=== PATIENT | female | born 1965 ===

== ENCOUNTER 2024-11-22 14:03 | Outpatient (AMB) | payer MEDICAID, SELFPAY ==
--- NOTE | 2024-11-22 14:06 | A.OFFVIS_ITS ---
Intake Visit Reasons: mixed incontinence Intake Note: New patient presents today for initial visit for mixed incontinence Urology Medication:none Blood Thinner:Aspirin Antibiotic Allergies:none PVR:0ml Allergies No Known Allergies Allergy (Verified 11/22/24 15:21) Medication List - Last Reconciled 11/22/24 by BARBARA Villegas-ZIGGY ammonium lactate 12% appl topical aspirin 81 mg PO DAILY atorvastatin 40 mg PO DAILY baclofen 10 mg PO BID PRN carbamide peroxide 6.5% (Murine Ear) 5 drps otic (ears) BEDTIME cetirizine 10 mg PO DAILY cholecalciferol (vitamin D3) (Vitamin D3) 10 mcg PO DAILY citalopram 10 mg PO DAILY cyclobenzaprine 10 mg PO TID PRN famotidine 40 mg PO DAILY fluticasone propionate 50 mcg/actuation 1 spray intranasal DAILY gabapentin 600 mg PO TID lidocaine 5% 1 patch topical Q3D methadone 52 mg PO DAILY multivitamin with folic acid 400 mcg (Daily-Richar (with folic acid)) 1 tab PO DAILY pantoprazole 40 mg PO DAILY psyllium husk 0.4 grams PO DAILY selenium sulfide 2.5% topical BEDTIME sennosides (senna) 8.6 mg PO BID PRN sodium chloride 0.65% (Deep Sea Nasal) 1 spray intranasal HPI Comments Details: Cele is a very pleasant 59-year-old female patient of Dr. Valle. She has a past medical history of substance abuse, smoker, neuropathy, mixed incontinence, midline cystocele, low-grade squamous intraepithelial lesion on cervical Pap smear, CVA, uterus fibroid, bipolar disorder, bilateral varicose veins of lower extremities, and abnormal mammogram. She presents to the office today as a new patient for mixed urinary incontinence. In discussion with the patient today she reports symptoms have been present for many years however feels they have become more bothersome over the last few months. She reports utilizing approximately 3 Cinthia pads per day. We discussed at length potential causes of mixed urinary incontinence as well as further treatment options and risks and benefits of these treatment options. In office urinalysis results reviewed with the patient today. PVR 0 mL. We discussed obtaining retrope ritoneal ultrasound for further assessment evaluation. She does have a previous history of 3 vaginal deliveries and 1 via . She denies nocturia, hematuria, dysuria, foul smelling urine, changes to urinary stream, flank pain, fever, and or chills. She otherwise offers no other issues or concerns at this time. Plan For mixed urinary incontinence, I recommended starting with pelvic floor therapy, discussing its benefits and the wait-list. Medication options were outlined, and, for further diagnostics, a potential urodynamic study was considered if required later. A referral for pelvic floor therapy was submitted, and a kidney and bladder ultrasound was planned for additional assessment. We will evaluate progress post-therapy initiation. Patient was informed and verbally consented to the use of an ambient scribe for clinic note documentation during this visit. [facility] Medical History Varicose veins of both lower extremities Urinary urgency Urinary frequency Substance abuse Smoker Other psychoactive substance dependence, in remission Opioid use disorder, mild, in sustained remission Nocturia Neuropathy Mixed incontinence Midline cystocele Malignant neoplasm of breast (female), unspecified site Low grade squamous intraepithelial lesion (LGSIL) on cervical Pap smear Low back pain Lives alone Lack of access to transportation Inflammatory carcinoma of breast History of substance abuse History of cerebrovascular accident with residual deficit Fibroid uterus Fecal incontinence 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 Chronic depression Cerebrovascular accident Cerebral infarction due to embolism of unspecified anterior cerebral artery Bipolar disorder Atrophy of vagina Asymptomatic varicose veins of bilateral lower extremities Abnormal mammogram Surgical History History of right salpingo-oophorectomy History of left mastectomy Review of Systems Const All systems reviewed & are unremarkable except as noted in HPI and below Physical Exam Const General: cooperative, healthy appearing, comfortable, no acute distress, well developed, alert and awake Orientation/consciousness: patient oriented x3 Limitations: no limitations HEENT Head: Yes normal to inspection, Yes normocephalic and Yes atraumatic Ears: hearing grossly normal bilaterally Eyes General: appearance normal, both eyes and all related structures Neck Neck: Yes normal visual inspection and Yes trachea midline Chest Chest palpation & inspection: normal inspection of the chest Resp Effort & Inspection: normal respiratory effort and able to speak in complete sentences Cardio Rate: regular rate GI Inspection: Yes normal to inspection General: Yes no CVA tenderness Back/Spine/Pelvis Back: no CVA tenderness Skin General skin exam: no rashes or lesions noted Neuro General: patient oriented x3 Extrem General: Yes normal to inspection Psych Appearance: grossly normal and well kempt Mental Status: mental status grossly normal Speech and movement: Normal speech and movement present and Clear speech present Affect: normal affect Attitude: cooperative Thought process: Normal thought process present Thought content: Normal thought content present Insight: Fair insight present (Psych) Judgement: Fair judgement present (Psych) Results AMB Urinalysis, Automated UA Leukoctes 0 Sarita/uL Last Edit by Елена Monzon on 11/22/24 14:41 UA Nitrite Negative Last Edit by Елена Monzon on 11/22/24 14:41 UA Urobilinogen 3.5 mg/dL Last Edit by Елена Monzon on 11/22/24 14:41 UA Protein 0 mg/dL Last Edit by Елена Monzon on 11/22/24 14:41 UA pH 6.0 Last Edit by Елена Monzon on 11/22/24 14:41 UA Blood 0 Dontae/uL Last Edit by Елена Monzon on 11/22/24 14:41 UA Specific Zamora 1.020 Last Edit by Елена Monzon on 11/22/24 14:41 UA Ketone Negative Last Edit by Елена Monzon on 11/22/24 14:41 UA Bilirubin 0 mg/dL Last Edit by Елена Monzon on 11/22/24 14:41 UA Glucose 0 mg/dL Last Edit by Елена Monzon on 11/22/24 14:41 Results Reviewed Results Reviewed: Laboratory Last Values Urine pH (Auto) 6.0 11/22/24 14:14 Specific Zamora (Auto) 1.020 11/22/24 14:14 Urine Protein (Auto) 0 mg/dL 11/22/24 14:14 Glucose (UA)(Auto) 0 mg/dL 11/22/24 14:14 Urine Ketones (Auto) Negative 11/22/24 14:14 Urine Blood (Auto) 0 Dontae/uL 11/22/24 14:14 Urine Nitrite (Auto) Negative 11/22/24 14:14 Urine Bilirubin (Auto) 0 mg/dL 11/22/24 14:14 Urine Urobilinogen (Auto) 3.5 mg/dL 11/22/24 14:14 Leukocyte Esterase (Auto) 0 Sarita/uL 11/22/24 14:14 Assessment & Plan Assessment & Plan (1) Mixed stress and urge urinary incontinence: Code(s): N39.46 - Mixed incontinence Category: Medical Plan In office urinalysis results reviewed with the patient today; as noted above. PVR 0 mL. Will obtain retroperitoneal ultrasound for further assessment evaluation. Referral submitted for pelvic floor therapy for further assessment evaluation. We discussed at length potential causes and treatment options of mixed urinary incontinence and risks and benefits of these interventions. All questions were answered. We discussed bladder triggers/irritants. Follow-up in 3 months with imaging and PVR; or sooner with any issues, concerns, and or questions. Orders: Orders US retroperitoneal comp Today N39.46 - Mixed incontinence AMB Urinalysis Automated Today Z13.9 - Encounter for screening, unspecified AMB Post Void Residual by ultrasound Today Z13.9 - Encounter for screening, unspecified PT Evaluation and Treatment Today N39.46 - Mixed incontinence Patient Instructions: The patient had an opportunity to ask questions regarding the treatment plan. All questions were answered. Physical exam, labs, and imaging were discussed and reviewed in detail. As well as risks, benefits, and discussion of treatment choices. No major barriers to understanding were identified. The patient express ed understanding and agreement with the above treatment plan. The patient was made aware they should contact our office by phone for worsening of their current condition, the appearance of new symptoms, or with any questions or concerns. Compliance is encouraged with any medications and follow up testing that is ordered. It is a privilege to be allowed the opportunity to participate in? your urological care.? Again, if you have any questions or concerns If you have any questions or concerns please do not hesitate to contact me. The office is [phone]. This note is constructed using voice recognition software. While every effort has been made to ensure accuracy branch controller errors may have been included. Yours sincerely, BALA Villegas Coding Level of Care Code New Pt Level 3 (58591) Diagnoses Mixed stress and urge urinary incontinence N39.46
--- OUTSIDE RECORDS SUMMARY | 2024-11-22 16:26 | XMS_ITS | Clinical Summary ---
Author Organization [facility] Address [address] [place] [address] Phone Care Team Providers Care Auto Air Conditioning Apprentice Name Role Phone Cody Soria MD Primary Care Provider [phone] Allergies No known active allergies Surgical History Surgery Date Site/Laterality Comments SECTION PROCEDURE: [facility] DELIVERY ONLY OTHER SURGICAL HISTORY 2020 Left PROCEDURE: HISTORY OTHER; COMMENT: total mastectomy Social History Tobacco Use Types Packs/Day Years Used Date Smoking Tobacco: Every Day Smokeless Tobacco: Never Alcohol Use Standard Drinks/Week Comments Yes 0 (1 standard drink = 0.6 oz pur e alcohol) Comments Unknown Sex and Gender Information Value Date Recorded Sex Assigned at Female 10/13/2024 8:23 AM EST Legal Sex Female 1:34 AM EST Gender Identity Female 10/13/2024 8:23 AM EST Sexual Orientation Not on file Obstetrics History Last Filed Vital Signs Vital Sign Reading Time Taken Comments Blood Pressure 106/83 08/04/2024 3:38 PM EST Pulse 71 08/04/2024 3:38 PM EST Temperature 37.1 ??C (98.8 ??F) 08/04/2024 3:38 PM ES T Respiratory Rate 20 08/04/2024 3:38 PM EST Oxygen Saturation 96% 08/04/2024 3:38 PM EST Inhaled Oxygen Concentration - - Weight 80.9 kg (178 lb 6.4 oz) 03/23/2023 1:49 P M EDT Height 165.1 cm (5' 5 ) 08/04/2024 3:38 PM EST Body Mass Index 28.79 03/23/2023 1:49 PM EDT Plan of Treatment Health Maintenance Due Date Last Done Comments Breast Cancer Screening 1965 COVID-19 Vaccine (#1) 1970 Cervical Cancer Screening: Pap Smear 1986 Pneumococcal Vaccine: 50+ Years (3 of 3 - PPSV23, PCV20 or PCV21) 11/25/2017 09/30/2017, 06/22/2012 Pneumococcal Vaccine: Pediatrics (0 to 5 Years) and At-Risk Patients (6 to 64 Years) (3 of 3 - PPSV23, PCV20 or PCV21) 11/25/2017 09/30/2017, 06/22/2012 Hepatitis B Vaccines (2 of 3 - 19+ 3-dose series) 07/19/2019 06/21/2019 Hepatitis A Vaccines (2 of 2 - Risk 2-dose series) 12/21/2019 06/21/2019 Colorectal Cancer Screening: Colonoscopy 08/09/2022 Hepatitis C Screening 08/09/2022 Social Influencers of Health Screening 08/09/2022 Influenza Vaccine (#1) 2024 8, 05/29/2013, 06/22/2012, Additional history exists Depression Screening 10/11/2024 10/11/2023 Cholesterol Screening (Lipid Panel) 10/11/2028 10/11/2023, 10/11/2023 DTaP,Tdap,and Td Vaccines (2 - Td or Tdap) 06/21/2029 06/21/2019 RSV Immunization Patients 60+ Years Old (1 - 1-dose 75+ series) 02/25/2040 MMR Vaccines Aged Out 09/08/2010 No longer eligi ble based on patient's age to complete this topic HIV Screening Completed 02/09/2020 Zoster Vaccines Completed 03/21/2024, 10/11/2023 HIB Vaccines Aged Out No longer eligi ble based on patient's age to complete this topic HPV Vaccines Aged Out No longer eligi ble based on patient's age to complete this topic IPV Vaccines Aged Out No longer eligi ble based on patient's age to complete this topic Meningococcal ACWY Vaccine Aged Out N o longer eligible based on patient's age to complete this topic Meningococcal B Vacine Aged Out No lo nger eligible based on patient's age to complete this topic RSV Immunization Patients Under 20 months Aged Out No longer eligible based on patient's age to complete this topic Varicella Vaccines Aged Out No longer eligible based on patient's age to complete this topic Insurance MEDICAID - [place] Care Teams Auto Air Conditioning Apprentice Relationship Specialty Start Date End Date Cody Soria MD [address] [place] [phone] PCP - General Internal Medicine 08/06/21
--- OUTSIDE RECORDS SUMMARY | 2024-11-22 16:26 | XMS_ITS | Clinical Summary ---
Author Organization [facility], Address [address] [place] [address] Phone Care Team Providers Care Recreational Therapy Aide Name Role Phone Tyrone Valle MD Primary Care Provider [phone] Allergies No known active allergies Medications methadone (DOLOPHINE) 5 MG/5ML solution Take 52 mg by mouth 1 (one) time each day Active acetaminophen (TYLENOL 8 HOUR) 650 MG 8 hr tablet Take 650 mg by mouth 12/07/2019 Active citalopram (CeleXA) 10 MG tablet Take 10 mg by mouth 01/25/2020 Active gabapentin (NEURONTIN) 100 MG capsule Take 100 mg by mouth 12/21/2018 Active Glecaprevir-Pib rentasvir (Mavyret) 100-40 MG tablet Take 3 tablets by mouth 02/29/2020 Active melatonin 3 MG tablet Take 6 mg by mouth 01/25/2020 Active traZODone (DESYREL) 100 MG tablet TAKE 1 TABLET BY MOUTH EVERYDAY AT BEDTIME 07/25/2019 Active Active Problems Problem Noted Date Diagnosed Date Depressive disorder 04/11/2020 Viral hepatitis C 04/11/2020 Uterine leiomyoma 04/11/2020 Substance abuse 04/11/2020 Primary malignant neoplasm of breast 04/11/2020 Overview (06/06/2024): Replacing diagnoses that were inactivated after the 06/06/24 Regulatory Import Embolic stroke 12/07/2019 Overview (04/17/2020): Right sided stroke, treated 11/10/2019 [facility] Urgent desire to urinate 06/21/2019 Overview (04/17/2020): Per 04/10/19, UroGyn Office Note, Kita Payton MD Nocturia 06/21/2019 Overview (04/17/2020): 3x/pm, Per 04/10/19, UroGyn Office Note, Kita Payton MD. Low back pain 06/21/2019 Overview (04/17/2020): Per 09/29/18 [facility] breast and wellness report, office visit note. Midline cystocele 06/21/2019 Overview (04/17/2020): Per 04/10/19, UroGyn Office Note, Kita Payton MD: recommend observation at this time. Mixed incontinence 06/21/2019 Overview (04/17/2020): Per 04/10/19, UroGyn Office Note, Kita Payton MD, Mixed type with urinary frequency and urgency, nocturia. Plan to start PT and behavioral modification for Tx, Dr. Florentino to obtain UDS. Neuropathy 06/21/2019 Overview (04/17/2020): 02/13/19, [place] [facility] f/u report: ER weakly (+), CA (-), Her 2+ grade 2 of one lesion at 9 o'clock, HER-2 (+), 1o'clock, invasive ductal carcinoma grade 2 ER/CA (-) and HER-2 (+); (L) axillary lymph node (+) for adenocarcinoma in 08/02/17. Tx: 1. Neoadjuvant chemotherapy with TCH-P, s/p cycle 1 followed by Neulasta on 10/05/17, dose reduction of docetaxeal secondary to preexisting LFT abnormalities. S/p C4- 12/16/17. S/p C6 - 02/02/18. Docetaxel d/c in [facility] 01/09 for gr 3 neuropathy that was interfering with gait/pain. Atrophy of vagina 06/21/2019 Overview (04/17/2020): Per 04/10/19, UroGyn Office Note, Kita Payton MD: Will defer Tx at this time as she is on arimidex. Cervicovaginal cytology: Low grade squamous intraepithelial lesion 06/21/2019 Overview (04/17/2020): Dx Per 09/29/18 [facility] breast and wellness report, office visit note. Patient No -Showed to apt 05/03/19 with [facility]. Foot pain 06/21/2019 Overview (04/17/2020): Per 09/29/18 [facility] breast and wellness report, office visit note. Unspf Laterality. History of left mastectomy 06/21/2019 Overview (04/17/2020): Per 09/29/18 [facility] breast and wellness report, office visit note 8 months s/p(L) modified radical mastectomy for inflammatory breast CA. Has now completed postmastectomy radiation. Impression and Plan: if concerns persist about redundant tissue on either side of mastectomy scar, contact office in summer for re-eval- remided that surgical revision would have to occur 6 months after radiation therapy conclusion. Stressed importance of proceeding with Herceptin infusions, as pt had not started with Dr. Parker. History of right salpingo-oophorectomy 9 Overview (04/17/2020): Per 09/29/18 [facility] breast and wellness report, office visit note. 02/01/08 Path with inflammation . History of substance abuse 06/21/2019 Overview (04/17/2020): Per 09/29/18 [facility] breast and wellness report, office visit note. Increased frequency of urination 06/21/2019 Overview (04/17/2020): Per 04/10/19, UroGyn Office Note, Kita Payton MD Inflammatory carcinoma of breast 06/21/2019 Overview (04/17/2020): 02/13/19, [facility] Hem/Onc f/u report: ER weakly (+), CA (-), Her 2+ grade 2 of one lesion at 9 o'clock, HER-2 (+), 1o'clock, invasive ductal carcinoma grade 2 ER/CA (-) and HER-2 (+); (L) axillary lymph node (+) for adenocarcinoma in 08/02/17. Tx: 1. Neoadjuvant chemotherapy with TCH-P, s/p cycle 1 followed by Neulasta on 10/05/17, dose reduction of docetaxeal secondary to preexisting LFT abnormalities. S/p C4- 12/16/17. S/p C6 - 02/02/18. Docetaxel d/c in [facility] 01/09 for gr 3 neuropathy that was interfering with gait/pain. 2. Neutropenis fevers, s/p admission from 10/10/17 to 10/13/17. Imaging - PET: with suspicious focus of abnl uptake in L2, w/o corresponding CT abnormality and other nonspecific retroperitoneal lymph node uptake. Post chemo showed resolution of abnormal uptake inL 2 and a significant response in the breast and no other signs of metastatic disease; - (L) modified radical mastectomy/ALND by Dr. Celis 02/2018 - ypTIS, ypN0 - ER/CA(+); Post mastectomy radiation. Maintenance Herceptin/Pert resumed again in 04/23 as she missed few doses after op but stopped again d/t transport issues etc - s/p C5 01/22. Anastrozole 1 mg PO since 09/2018. Impression: H/o Hep C and inflammatory breast CA receiving chemo with curative intent with TCH-P with excellent response, S/p surgery and mastectomy radiation with interruptions and maintenance Herceptin based Tx and Anastrozole. Plan: Continue present Tx, Schedule (R) breast mamm, Schedule port-a-cath removal after completion of herceptin maintenance, f/u 6 months. Pathology report 08/02/17 - Estrogen receptor +, progesterone receptor negative. Invasive ductal carcinoma. Primary lesion left breast upper outer quadrant. Dx: Metastatic mammary Ductal Carcinoma 10/28/18 - Followed by [facility] Heme/Onc - On maintenance therapy of Pretzumab and Herceptin. Mammography abnormal 07/27/2017 Overview (04/17/2020): 07/22/17 - [facility] - mammogram - 1. Large lobulated 5.5 cm mass 1:00 axis left breast highly suspicious for malignancy. US guided bx recommended. Additional masses 9, 10, 11 and need biopsies. 2. Abnormal lymph nodes axilla, core biopsies recommened. 3/ Prominent skin thickening over left breast, worrisome for inflammatory CA, punch biopsy recommended. Varicose veins of bilateral lower limbs 09/17/19 17 Overview (04/17/2020): Since 2013 Opioid abuse 09/17/2016 Overview (04/17/2020): Noted 09/17/16, Per 04/10/19, UroGyn Office Note, Kita Payton MD, .: heroin 3-4 years ago. Previous Tx: Outpatient; IV drug use, Yes , 02/15/18. Alcohol use disorder, mild, in early remission 0 09/17/2016 Opioid dependence 08/18/2016 Social History Tobacco Use Types Packs/Day Years Used Date Smoking Tobacco: Every Day Cigarettes Started: 1978 Alcohol Use Standard Drinks/Week Comments Not Currently 0 (1 standard drink = 0.6 oz pur e alcohol) Comments Unknown Sex and Gender Information Value Date Recorded Sex Assigned at Not on file Legal Sex Female 4:37 PM EST Gender Identity Not on file Sexual Orientation Not on file Last Filed Vital Signs Vital Sign Reading Time Taken Comments Blood Pressure 126/82 04/26/2020 11:28 AM EDT Pulse 71 04/26/2020 11:28 AM EDT Temperature 37.1 ??C (98.8 ??F) 04/26/2020 11:28 AM E DT Respiratory Rate 18 04/26/2020 11:28 AM EDT Oxygen Saturation 97% 04/26/2020 11:28 AM EDT Inhaled Oxygen Concentration - - Weight 84.4 kg (186 lb 1.1 oz) 04/26/2020 11:28 AM EDT Height 165.1 cm (5' 5 ) 04/26/2020 11:28 AM EDT Body Mass Index 30.96 04/26/2020 11:28 AM EDT Plan of Treatment Health Maintenance Due Date Last Done Comments Breast Cancer Screening 1965 Pneumococcal Vaccine: Pediat rics (0 to 5 Years) and At-Risk Patients (6 to 64 Years) (1 of 2 - PCV) 1971 Hepatitis B Vaccine (1 of 3 - 19+ 3-dose series) 02/2406/21/2019 Colorectal Cancer Screening: Annual FOBT 2014 Colorectal Cancer Screening: Colonoscopy 2014 Colorectal Cancer Screening: Sigmoidoscopy 2014 Influenza Vaccine (#1) 2024 Insurance [facility] MEDICAID Care Teams Recreational Therapy Aide Relationship Specialty Start Date End Date Tyrone Valle MD [facility] [place] [address] PCP - General Physician Cattle Tester 04/26/20
--- OUTSIDE RECORDS SUMMARY | 2024-11-22 16:26 | XMS_ITS | Clinical Summary ---
Author Organization [facility] Address [address] [place] [address] Care Team Providers Care Lawn Care Specialist Name Role Phone Tyrone Valle Primary Care Provider [phone] Source Comments PLEASE NOTE, if this patient is a minor, it may be UNLAWFUL to discuss sensitive information that is contained in these records (such as FAMILY PLANNING, MENTAL HEALTH or SUBSTANCE ABUSE) with the minor patient's parent or other person without the patient's specific authorization.[facility] Allergies No known active allergies Medications walker (ULTRA-LIGHT ROLLATOR)Indication s:Cerebrovascular accident (CVA), unspecified mechanism (HCC-CMS) One Rollator for walking issue 1 Each 01/25/20 20 Active methadone 5 mg/5 mL solution Take 52 mg by mouth Active VITAMIN D3 10 mcg (400 unit) capsule 07/29/20 21 Active nicotine (NICODERM CQ) 14 mg/24 hr patch Apply 1 Patch topically 11/28/19 22 Active meclizine (ANTIVERT) 25 mg tabletIndications:D izziness TAKE 1 TABLET BY MOUTH 2 TIMES DAILY NEEDED FOR DIZZINESS,SENSAT ION OF SPINNING OR WHIRLING 24 Tablet 2 09/24/19 23 Active melatonin 3 mg tabletIndications:P rimary insomnia TAKE 2 TABLETS BY MOUTH NIGHTLY AT BEDTIME. 30 Tablet 2 01/21/20 23 Active MISCELLANEOUS MEDICAL SUPPLY MISCIndications:Lef t-sided weakness,Left hand weakness,Cerebrovas cular accident (CVA) due to embolism of right anterior cerebral artery (HCC-CMS),Cerebral infarction due to embolism of unspecified cerebral artery (HCC-CMS) by miscellaneous route daily. Please provide a standard folding walker. Need: lifetime 1 Each 04/28/20 23 Active psyllium husk (METAMUCIL) 0.52 gram capsuleIndications: Constipation, unspecified constipation type Take 1 Capsule by mouth once daily 90 Capsule 2 10/11/19 24 Active vitamin D3-folic acid 2,500 unit- 1 mg tab Take 10 mcg by mouth 10/16/19 23 Active anastrozole (ARIMIDEX) 1 mg tablet Take 1 mg by mouth 04/24/20 21 Active fluticasone (FLONASE) 50 mcg/actuation nasal spray SPRAY 1 SPRAY INTO EACH NOSTRIL EVERY DAY 48 mL 2 10/26/19 24 Active ammonium lactate (AMLACTIN) 12 % creamIndications:Dr agudelo skin APPLY TOPICALLY NEEDED FOR DRY SKIN OF FEET 385 g 11 12/16/19 24 Active sodium chloride (OCEAN) 0.65 % nasal sprayIndications:Na santiago dryness,Nasal bleeding,Seasonal allergies Place 1 [place] into the nostril(s) as needed for congestion 44 mL 1 12/21/19 24 Active cyclobenzaprine (FLEXERIL) 10 mg tabletIndications:N europathic pain Take 1 Tablet by mouth 3 (three) times daily as needed for muscle spasms 30 Tablet 2 03/21/20 24 Active MURINE EAR 6.5 % otic solution PLACE 5 DROPS INTO BOTH EARS NIGHTLY AT BEDTIME FOR 3 DAYS 15 mL 04/23/20 24 Active urea 10 % lotionIndications:O nychomycosis,Tinea versicolor Apply topically 2 (two) times daily 240 mL 1 06/14/20 24 Active lidocaine (LIDODERM) 5 % patchIndications:Ne uropathic pain Place 1 Patch onto the skin once daily (every 24 hours) Place 1 patch to clean/dry/hairle ss skin where most painful and leave on for 12 hours. Remove patch and wait 12 hours before putting on a new patch. 30 Patch 2 06/26/20 24 Active atorvastatin (LIPITOR) 40 mg tabletIndications:H ospital discharge follow-up,History of CVA with residual deficit Take 1 Tablet by mouth once daily 90 Tablet 1 06/26/20 24 Active budesonide-formoter oL (SYMBICORT) 160-4.5 mcg/actuation inhalerIndications: Chronic obstructive pulmonary disease with acute exacerbation (HCC-CMS) Inhale 2 Puffs into the lungs 2 (two) times daily 20.4 g 2 06/26/20 Active lidocaine (LIDODERM) 5 % patchIndications:Ne uropathic pain Place 1 Patch onto the skin once daily (every 24 hours) Place 1 patch to clean/dry/hairle ss skin where most painful and leave on for 12 hours. Remove patch and wait 12 hours before putting on a new patch. 30 Patch 2 06/26/20 Active baclofen (LIORESAL) 10 mg tabletIndications:L eft-sided weakness,Left hand weakness,Cerebrovas cular accident (CVA) due to embolism of right anterior cerebral artery (HCC-CMS),Cerebral infarction due to embolism of unspecified cerebral artery (HCC-CMS) TAKE 1 TABLET BY MOUTH 2 TIMES DAILY NEEDED FOR MUSCLE SPASMS. 60 Tablet 1 06/26/20 Active selenium sulfide 2.5 % lotionIndications:T inea versicolor APPLY TOPICALLY NIGHTLY AT BEDTIME. 120 mL 2 06/26/20 Active DAILY-PS, WITH FOLIC ACID, 400 mcg tabIndications:Acqu ired absence of left breast and nipple,Malignant neoplasm of unspecified site of left female breast ([facility]) TAKE 1 TABLET BY MOUTH ONCE DAILY FOR VITAMIN AND MINERAL DEFICIENCY 90 Tablet 3 06/26/20 [address] tabletIndications:H ospital discharge follow-up,History of CVA with residual deficit TAKE 1 TABLET BY MOUTH EVERY DAY 90 Tablet 1 07/13/20 24 Active incontinence pad, liner, dispIndications:Mix ed incontinence,Urinar y urgency,Urinary frequency,Nocturia Use one liner 2-3 times daily as needed for urinary incontinence. 200 Each 11 08/10/20 24 Active gabapentin (NEURONTIN) 600 mg tabletIndications:H istory of CVA with residual deficit,Neuropathic pain TAKE 1 TABLET BY MOUTH 3 (THREE) TIMES DAILY FOR NEUROPATHIC PAIN 90 Tablet 2 08/29/20 24 Active MISCELLANEOUS MEDICAL SUPPLY MISCIndications:Mix ed incontinence,Substa nce abuse ([facility]),Neuropath ic pain,Malignant neoplasm of left female breast, unspecified estrogen receptor status, unspecified site of breast ([facility]),Onychomyc osis,Cerebral infarction due to embolism of unspecified cerebral artery ([facility]),Varicose veins of both lower extremities, unspecified whether complicated,Urinary frequency,Nocturia, Urinary urgency,Cerebrovasc ular accident (CVA) due to embolism of right anterior cerebral artery (HCC-CMS),History of CVA with residual deficit,Left-sided weakness 1. Dispense: gloves, use one pair up to three times daily as needed for incontinence care. 2. masks, to be used one mask daily 3. Incontinence pads for bed, use one nightly 4. incontinence pull ups to be used TID PRN incontinence of urine 5. Commode - one for home 1 Each 10/02/19 25 Active citalopram (CELEXA) 10 mg tablet TAKE 1 TABLET BY MOUTH EVERY DAY 90 Tablet 2 10/13/19 25 Active famotidine (PEPCID) 40 mg tablet TAKE 1 TABLET BY MOUTH EVERY DAY 90 Tablet 2 10/13/19 25 Active cetirizine (ZYRTEC) 10 mg tabletIndications:N mary anne dryness,Seasonal allergies TAKE 1 TABLET BY MOUTH EVERY DAY 90 Tablet 1 10/13/19 25 Active Active Problems Patient Care Coordination No te Formatting of this note migh t be different from the original. Pre Visit Plan, 06/21/19, for Tyrone Barnard PA-C patient in for Check Liver, foot pains, r/s, Form. Valorie Alas. 12/21/18, Last seen: Cele Ellis is a 53 year old, female, here today for routine follow up. She is currently receiving treatment from oncology for breast cancer. At this time she is testing Hep C +, and has connected with [email or web address]. She will speak with her oncologist about whether she is ready for Hep C antivirals at this time. 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 Requested gabapentin for unclear leg pain, varicose veins vs. Neuropathy. Suggested DCing medication, patient to consider. Rx'ed gabapentin 100mg cap for once daily, chronic hepatitis Cw/o coma, instructed to RTC for labs and contact ID after speaking with oncologist. - [facility] and Participation in [facility] AFC (Adult Foster Care) program. 04/10/19, [facility] UrogynKita MD, Assessment/Plan: Mixed incontinence, Urinary Urgency, Urinary Frequency, Nocturia, Cystocele asymptomatic (observation recommended), Atrophy of Vagina (defer Tx d/t Arimidex): Obtain UDS given urge-predominant Sx's with pt interested in PT and behavioral modifications for UUI. Patient No -Showed to apt 05/03/19 with [facility] [place] [facility]. 02/13/19, [facility] Hem/Onc f/u report, Impression: H/o Hep C and inflammatory breast CA receiving chemo with curative intent with TCH-P with excellent response, S/p surgery and mastectomy radiation with interruptions and maintenance Herceptin based Tx and Anastrozole. Plan: Continue present Tx, Schedule (R) breast mamm, Schedule port-a-cath removal after completion of herceptin maintenance, f/u 6 months. Problem Noted Date Diagnosed Date Lack of access to transportation 06/23/2024 Class 1 obesity 10/11/2023 History of cerebrovascular a ccident (CVA) with residual deficit 10/11/2023 Smoker 10/11/2023 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 02/26/2022 Fecal incontinence 10/14/2021 Cerebrovascular accident (CVA) due to embolism ( [facility]) 12/07/2019 Overview (04/26/2020): Right sided stroke, treated 11/10/2019 [facility] Right sided stroke, treated 11/10/2019 [facility] Cerebral infarction due to e mbolism of unspecified cerebral artery ([facility]) 12/07/2019 Overview (02/27/2021): Right sided stroke, treated 11/10/2019 [facility] Low grade squamous intraepit helial lesion (LGSIL) on cervicovaginal cytologic smear 06/21/2019 Overview (10/11/2023): Dx Per 09/29/18 [facility] breast and wellness report, office visit note. Patient No -Showed to apt 05/03/19 with [facility] [place] [facility]. Dx Per 09/29/18 [facility] breast and wellness report, office visit note. Patient No -Showed to apt 05/03/19 with [facility] [place]. Dx Per 09/29/18 [facility] breast and wellness report, office visit note. Patient No -Showed to apt 05/03/19 with [facility] [place]. Pap 10/20/2011 - LGSIL. Missed colposcopy appt 12/16/2011. Pap 10/20/2011 - LGSIL. Missed colposcopy appt 12/16/2011. Pap 10/20/2011 - LGSIL. Missed colposcopy appt 12/16/2011. Pap 10/20/2011 - LGSIL. Missed colposcopy appt 12/16/2011. History of substance abuse ([facility]) 06/21/2019 Overview (04/26/2020): Per 09/29/18 [facility] breast and wellness report, office visit note. Per 09/29/18 [facility] breast and wellness report, office visit note. Low back pain 06/21/2019 Overview (02/27/2021): Per 09/29/18 [facility] breast and wellness report, office visit note. Per 09/29/18 [facility] breast and wellness report, office visit note. History of right salpingo-oophorectomy 9 Overview (10/11/2023): Per 09/29/18 [facility] breast and wellness report, office visit note. 02/01/08 Path with inflammation . Per 09/29/18 [facility] breast and wellness report, office visit note. 02/01/08 Path with inflammation . 02/01/08- path with inflammation 02/01/08- path with inflammation History of left mastectomy 06/21/2019 Overview (02/27/2021): Per 09/29/18 [facility] breast and wellness report, office visit [...] pt had not started with Dr. Parker. Per 09/29/18 [facility] breast and wellness report, office visit [...] pt had not started with Dr. Parker. Per 09/29/18 [facility] breast and wellness report, office visit [...] pt had not started with Dr. Parker. Inflammatory carcinoma of breast ([facility]) 06/21 Overview (04/26/2020): 02/13/19, [facility] Hem/Onc f/u report: ER weakly (+), PA (-), Her 2+ grade 2 of one lesion at 9 o'clock, HER-2 (+), 1o'clock, invasive ductal carcinoma grade 2 ER/PA (-) and HER-2 (+); (L) axillary lymph [...] Dr. Celis 02/2018 - ypTIS, ypN0 - ER/PA(+); Post mastectomy radiation. Maintenance Herceptin/Pert resumed again [...] mammary Ductal Carcinoma 10/28/18 - Followed by [facility] Heme/Onc - On maintenance therapy of Pretzumab and Herceptin. 02/13/19, [facility] Hem/Onc f/u report: ER weakly (+), PA (-), Her 2+ grade 2 of one lesion at 9 o'clock, HER-2 (+), 1o'clock, invasive ductal carcinoma grade 2 ER/PA (-) and HER-2 (+); (L) axillary lymph [...] Dr. Celis 02/2018 - ypTIS, ypN0 - ER/PA(+); Post mastectomy radiation. Maintenance Herceptin/Pert resumed again [...] mammary Ductal Carcinoma 10/28/18 - Followed by [facility] Heme/Onc - On maintenance therapy of Pretzumab and Herceptin. Neuropathy 06/21/2019 Overview (02/27/2021): 02/13/19, [facility] f/u report: ER weakly (+), PA (-), Her 2+ grade 2 of one lesion at 9 o'clock, HER-2 (+), 1o'clock, invasive ductal carcinoma grade 2 ER/PA (-) and HER-2 (+); (L) axillary lymph node (+) for adenocarcinoma in 08/02/17. Tx: 1. Neoadjuvant chemotherapy with TCH-P, s/p cycle 1 followed by Neulasta on 10/05/17, dose reduction of docetaxeal secondary to preexisting LFT abnormalities. S/p C4- 12/16/17. S/p C6 - 02/02/18. Docetaxel d/c in C 01/09 for gr 3 neuropathy that was interfering with gait/pain. 02/13/19, [facility] Hem/Onc f/u report: ER weakly (+), PA (-), Her 2+ grade 2 of one lesion at 9 o'clock, HER-2 (+), 1o'clock, invasive ductal carcinoma grade 2 ER/PA (-) and HER-2 (+); (L) axillary lymph node (+) for adenocarcinoma in 08/02/17. Tx: 1. Neoadjuvant chemotherapy with TCH-P, s/p cycle 1 followed by Neulasta on 10/05/17, dose reduction of docetaxeal secondary to preexisting LFT abnormalities. S/p C4- 4. S/p C6 - 02/02/18. Docetaxel d/c in C 01/09 for gr 3 neuropathy that was interfering with gait/pain. 02/13/19, [facility] f/u report: ER weakly (+), PA (-), Her 2+ grade 2 of one lesion at 9 o'clock, HER-2 (+), 1o'clock, invasive ductal carcinoma grade 2 ER/PA (-) and HER-2 (+); (L) axillary lymph node (+) for adenocarcinoma in 08/02/17. Tx: 1. Neoadjuvant chemotherapy with TCH-P, s/p cycle 1 followed by Neulasta on 10/05/17, dose reduction of docetaxeal secondary to preexisting LFT abnormalities. S/p C4- 12/16/17. S/p C6 - 02/02/18. Docetaxel d/c in C 01/09 for gr 3 neuropathy that was interfering with gait/pain. Fibroid uterus 06/21/2019 Overview (10/11/2023): 01/04/19, [facility] note, Problem list, unspecified details. Per 04/10/19, UroGyn Office Note, Kita Payton MD: [facility]- A salt miner previously told her she has a fibroid compressing the uterus which was causing urinary frequency. Atrophy of vagina 06/21/2019 Overview (02/27/2021): Per 04/10/19, UroGyn Office Note, Kita Payton MD: Will defer Tx at this time as she is on arimidex. Per 04/10/19, UroGyn Office Note, Kita Payton MD: Will defer Tx at this time as she is on arimidex. Nocturia 06/21/2019 Overview (02/27/2021): Per 04/10/19, [facility] Office NoteFito Katelyn Smithling MD, Mixed type with urinary frequency and urgency, nocturia. Plan to start PT and behavioral modification for Tx, Dr. Florentino to obtain UDS. 3x/pm, Per 04/10/19, UroGyn Office Note, Kita Payton MD. 3x/pm, Per 04/10/19, [facility] Office NoteFito Katelyn Smithling MD. Urinary frequency 06/21/2019 Overview (10/11/2023): Per 04/10/19, [facility] Office NoteFito Katelyn Smithling MD Per 04/10/19, [facility]yn Office NoteFito Katelyn Smithling MD Per 04/10/19, [facility]yn [facility] NoteFito Katelyn Smithling MD Urinary urgency 06/21/2019 Overview (02/27/2021): Per 04/10/19, [facility]Fito Katelyn Smithling MD Per 04/10/19, [facility]yn Office NoteFito Katelyn Smithling MD Per 04/10/19, [facility]yn Office NoteFito Katelyn Smithling MD Mixed incontinence 06/21/2019 Overview (02/27/2021): 3x/pm, Per 04/10/19, [facility] Office NoteFito Katelyn Smithling MD. Per 04/10/19, [facility] Office NoteFito Katelyn Smithling MD, Mixed type with urinary frequency and urgency, nocturia. Plan to start PT and behavioral modification for Tx, Dr. Florentino to obtain UDS. Midline cystocele, asymptomatic 06/21/2019 Overview (02/27/2021): Per 04/10/19, UroGyn Office Note, Kita Payton MD: recommend observation at this time. Per 04/10/19, UroGyn Office Note, Kita Payton MD: recommend observation at this time. Lives alone 06/21/2019 Overview (06/21/2019): Per 04/10/19, UroGyn Office Note, Kita Payton MD, other details unspf. Substance abuse ([facility]) 06/21/2019 Overview (04/26/2020): Per Per 04/10/19, UroGyn Office Note, Kita Payton MD Use: Current. Type: cocaine, heroin, marijuana. Heroin: 3-4 years ago. Previous Tx: Outpatient; IV drug use: Yes , 02/15/18. Malignant neoplasm of unspec ified site of unspecified female breast ([facility]) 06/21/2019 Overview (02/27/2021): 02/13/19, [facility] f/u report: ER weakly (+), PA (-), Her 2+ grade 2 of one lesion at 9 o'clock, HER-2 (+), 1o'clock, invasive ductal carcinoma grade 2 ER/PA (-) and HER-2 (+); (L) axillary lymph [...] Dr. Celis 02/2018 - ypTIS, ypN0 - ER/PA(+); Post mastectomy radiation. Maintenance Herceptin/Pert resumed again [...] mammary Ductal Carcinoma 10/28/18 - Followed by [facility] Heme/Onc - On maintenance therapy of Pretzumab and Herceptin. Abnormal mammogram, unspecified 07/27/2017 Overview (02/27/2021): 07/22/17 - [facility] - mammogram - 1. Large lobulated 5.5 cm mass 1:00 axis left breast highly suspicious for malignancy. US guided bx recommended. Additional masses 9, 10, 11 and need biopsies. 2. Abnormal lymph nodes axilla, core biopsies recommened. 3/ Prominent skin thickening over left breast, worrisome for inflammatory CA, punch biopsy recommended. 07/22/17 - [facility] - mammogram - 1. Large lobulated 5.5 cm mass 1:00 axis left breast highly suspicious for malignancy. US guided bx recommended. Additional masses 9, 10, 11 and need biopsies. 2. Abnormal lymph nodes axilla, core biopsies recommened. 3/ Prominent skin thickening over left breast, worrisome for inflammatory CA, punch biopsy recommended. 07/22/17 - [facility] - mammogram - 1. Large lobulated 5.5 cm mass 1:00 axis left breast highly suspicious for malignancy. US guided bx recommended. Additional masses 9, 10, 11 and need biopsies. 2. Abnormal lymph nodes axilla, core biopsies recommened. 3/ Prominent skin thickening over left breast, worrisome for inflammatory CA, punch biopsy recommended. Varicose veins of both lower extremities 017 Overview (04/26/2020): Since 2013 Since 2013 Opioid use disorder, mild, in sustained remissio n ([facility]) 09/17/2016 Overview (06/21/2019): Noted 09/17/16, Per 04/10/19, UroGyn Office Note, [place], Kita Florentino MD, .: heroin 3-4 years ago. Previous Tx: Outpatient; IV drug use, Yes , 02/15/18. Asymptomatic varicose veins of bilateral lower e xtremities 09/17/2016 Overview (02/27/2021): Since 2013 Other psychoactive substance dependence, in remission ([facility]) 08/18/2016 Overview (02/27/2021): Per 09/29/18 [facility] breast and wellness report, office visit note. Bipolar disorder ([facility]) 08/18/2016 Overview (10/14/2021): on no meds & no psychiatric provider per pt 09/2017 Viral hepatitis C 08/18/2016 Chronic depression 02/22/2008 Overview (10/11/2023): Per 09/29/18 [facility] breast and wellness report, office visit note. Psych care - [facility] [id number] Active patient 02/11 Psych care - [facility] [id number] Active patient 02/11 Psych care - center [facility] [id number] Active patient 02/11 Psych care - center for psych [id number] Active patient 02/11 Resolved Problems Problem Noted Date Diagnosed Date Resolved Date Pain of foot 10/14/2021 11/12/2022 Primary malignant neoplasm o f upper outer quadrant of female breast ([facility]) 04/11/2020 03/0 05/2023 Depressive disorder 04/11/2020 11/13/19 Foot pain 06/21/2019 11/12/2022 Overview (02/26/2022): Per 09/29/18 [facility] breast and wellness report, office visit note. Unspf Laterality. Per 09/29/18 [facility] breast and wellness report, office visit note. Unspf Laterality. Manic-depression ([facility]) 06/21/2019 0 11/12/2022 Overview (06/21/2019): Per 09/29/18 [facility] breast and wellness report, office visit note. on no meds & no psychiatric provider per pt 09/2017. Opioid abuse ([facility]) 09/17/201611/12 Overview (02/27/2021): Noted 09/17/16, Per 04/10/19, UroGyn Office Note, Kita Payton MD, .: heroin 3-4 years ago. Previous Tx: Outpatient; IV drug use, Yes , 02/15/18. Noted 09/17/16, Per 04/10/19, UroGyn Office Note, Kita Payton MD, .: heroin 3-4 years ago. Previous Tx: Outpatient; IV drug use, Yes , 02/15/18. Encounters Date Type Department Care Team Description 10/16/2024 Interim Notes [address] [phone] Rebecca Holt MA 09/29/2024 Interim Notes [address] [phone] Janet Nash 09/05/2024 Interim Notes [address] [phone] Haydee Patel MA from Last 3 Months Immunizations Name Administration Dates Next Due Hep A, adult 06/21/2019 Hep B, Adult/Adol (ENERGIX/RECOMBIVAX) 9 INFLUENZA, SEASONAL, INJECTABLE 09/30/19 18,05/29/2013,06/22/2012,07/18 MMR (MMR II/Priorix) 09/08/2010 PNEUMOCOCCAL CONJUGATE PCV 13 09/30/2017 PNEUMOCOCCAL POLYSACCHARIDE PPV23 06/22/2012 TDAP 06/21/2019 ZOSTER VACCINE, RECOMBINANT (SHINGRIX) 4,10/11/2023 tetanus toxoid, unspecified 08/27/2009 Family History Medical History Relation Name Comments Cancer Daughter Cervical Alzheimer's Disease Mother Diabetes Mother II Kidney disease Mother Cancer Sister Cervical Relation Name Status Comments Daughter Mother Sister Social History Tobacco Use Types Packs/Day Years Used Date Smoking Tobacco: Some Days Cigarettes Passive Smoke Exposure: Never Smokeless Tobacco: Never Tobacco Cessation:Ready to Q uit: Yes; Counseling Given: Not Answered Alcohol Use Standard Drinks/Week Comments Not Currently 0 (1 standard drink = 0.6 oz pur e alcohol) occassionally Social Connections Answer Date Recorded Connectedness 1 10/11/2023 Financial Resource Strain Answer Date R ecorded Financial Resource Strain 1 2023 Stress Answer Date Recorded Stress 1 10/11/2023 Physical Activity Answer Date Recorded Physical Activity 0 04/28/2019 Food Insecurity Answer Date Recorded Food 2 06/23/2024 Transportation Needs Answer Date Record ed Transportation 2 06/23/2024 Housing Stability Answer Date Recorded Housing 1 06/23/2024 Safety and Environment Answer Date Giacomo rded Safety 1 10/11/2023 Utilities Answer Date Recorded Utilities 1 06/23/2024 Employment Answer Date Recorded Stress 0 10/11/2023 Comments No Sex and Gender Information Value Date Recorded Sex Assigned at Female 11/16/2018 2:19 PM PDT Legal Sex Female 8:18 AM PDT Gender Identity Female 11/16/2018 2:19 PM PDT Sexual Orientation Straight 11/16/2018 2: 19 PM PDT Last Filed Vital Signs Vital Sign Reading Time Taken Comments Blood Pressure 140/75 06/13/2024 4:54 PM EDT Pulse 72 06/13/2024 4:54 PM EDT Temperature 36.7 ??C (98.1 ??F) 06/13/2024 4:54 PM ED T Respiratory Rate 18 06/13/2024 4:54 PM EDT Oxygen Saturation 92% 06/13/2024 4:54 PM EDT Inhaled Oxygen Concentration - - Weight 73.5 kg (162 lb) 06/13/2024 4:54 PM EDT Height 165.1 cm (5' 5 ) 06/13/2024 4:54 PM EDT Body Mass Index 26.96 06/13/2024 4:54 PM EDT Plan of Treatment Upcoming Encounters Date Type Department Care Team (Late st Contact Info) Description 11/27/2024 2:20 PM EDT Office Visit [facility] [address] [place] [phone] Viki Avilez DO [address] [place] [address] 12/06/2024 1:40 PM EDT Office Visit [facility] [address] [place] [phone] Tyrone Valle PA [address] [place] [address] Health Maintenance Due Date Last Done Comments HPV Screening 1965 Pap + HPV [address] CT Colonography 2010 Colonoscopy 2010 Colorectal Cancer Screening 2010 FIT/gFOBT 2010 Fecal DNA 2010 Flexible Sigmoidoscopy 2010 Imm-Hepatitis B (2 of 3 - 19 + 3-dose series) 07/19/2019 06/21/2019 Cervical Cancer Screening 06/21/2022 Pap Smear 06/21/2022 06/21/2019 (Jessica singh by Outside Provider) Imm-Pneumococcal (3 of 3 - P CV20 or PCV21) 09/30/2022 09/30/2017, 06/22/2012 Breast Cancer Screening (Mammogram) 07/02/2023 07/02/2021, 11/16/2018, 07/27/2017 Tobacco Cessation Counseling (#1) 11/12/2023 Depression Monitoring 01/09/2024 10/11/2023 , 09/29/2021, 02/27/2021, Additional history exists [id number] ( season) 2024 Imm-Influenza (#1) 2024 09/30/2017, 0 05/29/2013, 06/22/2012, Additional history exists Alcohol and Drug Screen 09/06/2024 10/11/19, 10/11/2023, 02/27/2021, Additional history exists Annual Preventive Care Visit 10/11/202401/2024, 02/27/2021, 11/16/2018 Diabetes Screening 10/11/2024 10/11/2023, 0 10/11/2023, 02/09/2020 Lipid Screening 10/11/2024 10/11/2023 Hypertension Screening (#1) 06/13/2025 Imm-DTaP/Tdap/Td (2 - Td or Tdap) 06/21/2029 019 HIV Screening Completed 02/09/2020 Imm-Zoster, Recombinant Completed 03/21/2024, 10/11 Cervical Ablation/Cold-Knife Conization Discontinued Cervical Cryotherapy Discontinued Colposcopy Discontinued Endometrial Biopsy Discontinued Excision/Leep Discontinued HPV Genotyping Discontinued Vaginal Pap Discontinued Vulvoscopy Discontinued Procedures Procedure Name Priority Date/Time Associated Diagnosis Comments OTHER ORDERS SCANNED DOCUMENT 10/09/2024 3:00 AM EST HEALTH HISTORY SCANNED DOCUMENT 09/25/2024 3:00 AM EST OTHER ORDERS SCANNED DOCUMENT 09/11/2024 3:00 AM EST HGBA1C W/MPG Routine 10/11/2023 4:07 PM EST Routine adult health maintenance LIPID PANEL Routine 10/11/2023 4:07 PM EST Routine adult health maintenance REFERRAL FOR MAMMOGRAM Routine 07/02/2021 3:00 AM EDT S/P left mastectomy Inflammatory breast cancer, left (HCC-CMS) ANTIBODY HIV-1&HIV-2 SINGLE RESULT Routine 02/09/2020 11:03 AM EDT Exposure to STD from Last 3 Months or Most Recently Relevant to Health Maintenance Results * OTHER ORDERS SCANNED DOCUMENT (10/09/2024 3:00 AM EST) Only the most recent of2 resultswithin the time period is included. 10/09/2024 3:00 AM EST us Tyrone VAZQUEZ SCAN OTHER ORDERS Final Result * HEALTH HISTORY SCANNED DOCUMENT (09/25/2024 3:00 AM EST) 09/25/2024 3:00 AM EST [facility] Provider Default SCAN OTHER ORDERS Final Re sult * (ABNORMAL) HGBA1C W/MPG (10/11/2023 4:07 PM EST) HEMOGLOBIN A1C 5.7(H) <5.7 % of total Hgb [facility] Comment: For someone without known diabetes, a hemoglobin A1c value between 5.7% and 6.4% is consistent with prediabetes and should be confirmed with a follow-up test. For someone with known diabetes, a value <7% indicates that their diabetes is well controlled. A1c targets should be individualized based on duration of diabetes, age, comorbid conditions, and other considerations. This assay result is consistent with an increased risk of diabetes. Currently, no consensus exists regarding use of hemoglobin A1c for diagnosis of diabetes for children. MEAN PLASMA GLUCOSE 126 mg/dL (calc) [facility] Blood Blood / Unknown 10/11/2023 4 :07 PM EST 10/11/2023 4:07 PM EST us Tyrone VAZQUEZ LAB - BLOOD DRAW Edited Result - Final [facility] [employer] [address] [address], [facility] [address] [place] [address] * LIPID PANEL (10/11/2023 4:07 PM EST) CHOLESTEROL, TOTAL 158 <200 mg/dL [facility] HDL CHOLESTEROL 65 > OR = 50 mg/dL [facility] TRIGLYCERIDES 90 <150 mg/dL [facility] LDL-CHOLESTEROL 76 99 mg/dL (calc) [employer] Comment: Reference range: <100 Desirable range <100 mg/dL for primary prevention; ?? <70 mg/dL for patients with CHD or diabetic patients with > or = 2 CHD risk factors. LDL-C is now calculated using the Deejay calculation, which is a validated novel method providing better accuracy than the Friedewald equation in the estimation of LDL-C. Trav SS et al. EBENEZER. 2013;310(33): 5753-9893 (http://education.[employer]/faq/AUL513) CHOL/HDLC RATIO 2.4 <5.0 (calc) [facility] NON-HDL CHOLESTEROL 93 <130 mg/dL (calc) [facility] Comment: For patients with diabetes plus 1 major ASCVD risk factor, treating to a non-HDL-C goal of <100 mg/dL (LDL-C of <70 mg/dL) is considered a therapeutic option. Blood Blood / Unknown 10/11/2023 4 :07 PM EST 10/11/2023 4:07 PM EST Tryone [facility] - BLOOD DRAW Final Result Performing Organization Address City/State/[facility] Co de Phone Number [facility] [address] [place] [address], [employer] [place] [employer] [address] [place] [phone] * REFERRAL FOR MAMMOGRAM (07/02/2021 3:00 AM EDT) 07/02/2021 3:00 AM EDT us Tyrone VAZQUEZ G RFL MAMMO Edited Result - Final * HIV-1 & HIV-2 ANTIBODIES (02/09/2020 11:03 AM EDT) Pathologist [facility] HIV 1 AND 2 ANTIBODY SCREEN NEGATIVE NEGATIVE [facility] [employer] [facility] Comment: This assay is a 4th generation assay allowing for earlier detection of HIV infection by detecting the presence of the HIV-1 p24 antigen as well as the traditional antibodies to HIV type 1 (including group O) and type 2. ??Use of a 4th generation assay is the current CDC recommendation for HIV screening. Blood specimen (specimen) Blood / Unknown 02/09/2020 11:03 AM EDT 02/09/2020 1:24 PM EDT Narrative [facility] [employer] - 02/09/2020 4:36 PM EDT [employer], a member of [address] [address] [employer] - Lucrecia Karimi MD [place] [id number] ORD# [id number] Tyrone [facility] - BLOOD DRAW Final Result [employer] [address], from Last 3 Months or Most Recently Relevant to Health Maintenance Insurance [facility] [address] [employer] Care Teams Lawn Care Specialist Relationship Specialty Start Date End Date Tyrone Valle PA [address] [place] [address] PCP - General Internal Medicine 08/17/16
--- OUTSIDE RECORDS SUMMARY | 2024-11-22 16:26 | XMS_ITS | Encounter Summary ---
Author Organization [facility] Address [address] [place] [address] Care Team Providers Care Jira Developer Name Role Phone Tyrone Valle Primary Care Provider [phone] Encounter Details Date Type Department Care Team (Late st Contact Info) Description 08/01/2024 Interim Notes [address] [phone] Tyrone Valle PA [address] [place] [address] Social History Tobacco Use Types Packs/Day Years Used Date Smoking Tobacco: Some Days Cigarettes Passive Smoke Exposure: Never Smokeless Tobacco: Never Alcohol Use Standard Drinks/Week Comments Not Currently [...] Orientation Straight 11/16/2018 2: 19 PM PDT documented as of this encounter Plan of Treatment Upcoming Encounters Date Type Department Care Team (Late st Contact Info) Description 11/27/2024 2:20 PM EDT Office Visit [facility] [address] [place] [address] Viki Avilez DO [address] [place] [address] 12/06/2024 1:40 PM EDT Office Visit [facility] [address] [place] [phone] Tyrone Valle PA [address] [place] [address] documented as of this encounter Visit Diagnoses Not on filedocumented in this encounter Additional Health Concerns Assessment Noted Time PHQ-9 Depression Total Score: 6 10/11/19 24 3:09 PM PST documented as of this encounter Care Teams Jira Developer Relationship Specialty Start Date End Date Tyrone Valle PA [address] [place] [address] PCP - General Internal Medicine 08/17/16 documented as of this encounter
--- OUTSIDE RECORDS SUMMARY | 2024-11-22 16:26 | XMS_ITS ---
Author Organization [facility] Care Team Providers Care Control Room Agent Name Role Phone Jann, Lisandra May Unavailable Unavailable Aracely Mathew Unavailable Unavailable Caridad Patel Unavailable Unavailable Emeli VENEGAS, Karolina Sotelo Unavailable Unavailable Chata Landin Unavailable Unavailable Rene Gaming Unavailable Unavailable Allergies and adverse reactions No Known Allergies Care Team Name Role Address Phone Organization [facility] [address] [place] [address] (Office): : [facility] 01/23/2021 - 02/07/2021 Aracely Mathew Attending Physician [address] [place] [address] (Office): : [facility] 01/23/2021 - 02/07/2021 Caridad Patel Attending Physician [address] [place] [address], [address] (Office): : [facility] 01/23/2021 - 02/07/2021 Karolina Sainz NP Attending Physician [address] [place] [address], [address] (Office): [facility] 01/23/2021 - 02/07/2021 Chata Landin Attending Physician [address] [place] [address] (Office): : [phone] [facility] 01/23/2021 - 02/07/2021 Rene Gaming Attending Physician [address] [facility], [place], [address], [place] (Office): : [facility] 01/23/2021 - 02/07/2021 Goals Section Description Status Target Date I will enjoy participating i n a satisfying activity program through the next review date. Active 02/13/2021 I will enroll and participat e in a treatment program individually designed to meet my individual substance use goals. Active I will work with the IDT to ensure a safe discha rge. Active 02/13/2021 My MOLST will be respected. Active 02/04 My PASRR matches my SNF plac ement and staff will assist me accordingly. Active 02/13/2021 The resident will be free fr om discomfort or adverse reactions related to antidepressant therapy through the review date. Active 02/13/2021 The resident will exhibit in dicators of depression, anxiety or sad mood less than daily by review date. Active 02/13/2021 The resident will have intac t skin, free of redness, blisters or discoloration by/through review date. Active 02/13/2021 The resident will improve cu rrent level of function in (SPECIFY ADLs) through the review date. Resident will be able to: (SPECIFY) Active 02/13/2021 The resident will not sustai n serious injury through the review date. Active 02/13/2021 Will have intake >75% of edwin ls W ill have stable weights W ill tolerate a therapeutic diet S kin intact W ill have no s/sx of dehydration Active 02/13/2021 Mental Status Section Date Assessment Total Score Description 02/07/2021 BIMS 15 cognitively int act CAM 0 No delirium ind icated 01/28/2021 BIMS 14 cognitively int act CAM 0 No delirium ind icated PHQ-9 00 Problems Problem # Description Date of onset Resolved Date Code CodeSystem Concern Status 1 CEREBRAL INFARCTION, UNSPECIFIED 01/22/[address] active 2 COCAINE ABUSE, IN REMISSION 01/22/[address] active 3 HEMIPLEGIA, UNSPECIFIED AFFECTING LEFT NONDOMINANT SIDE 01/22/[address] active 4 MAJOR DEPRESSIVE DISORDER, RECURRENT, MILD 01/22/[address] active 5 OPIOID ABUSE, IN REMISSION 01/22/[address] active 6 OPIOID DEPENDENCE, UNCOMPLICATED 01/22/[address] active 7 OTHER ABNORMALITIES OF GAIT AND MOBILITY 01/22/[address] active 8 OTHER MALAISE 01/22/[address] act gina 9 OTHER MUSCLE SPASM 01/22/[address] active 10 OTHER REDUCED MOBILITY 01/22/[address] active 11 PERSONAL HISTORY OF MALIGNANT NEOPLASM OF BREAST 01/22/[address] active 12 PERSONAL HISTORY OF OTHER INFECTIOUS AND PARASITIC DISEASES 01/22/[address] active 13 UNSTEADINESS ON FEET 01/22/[address] active 14 WEAKNESS 01/22/[address] active Reason for Referral No Reasons for Referral Entered Social History Social History Observation Description Start Date End Date Code Code System Current Smoking Status Tobacco smoking consumption unknown 680436209 SNOMED CT Sex Assigned At Female 1965 [address]-0 [facility] Vital Signs Code Code System Vitals Name Values and Units Timing Information 84357-0 LOINC Pain Level Value=0.0 02/08/2021 9279-1 LOINC Respiratory Rate Value=14.0 Units=/m in 02/07/2021 8462-4 LOINC Blood Pressure-Diastolic Value=84 Un its=mmHg 02/07/2021 8480-6 LOINC Blood Pressure-Systolic Sgxlq=783 Un its=mmHg 02/07/2021 8310-5 LOINC Body Temperature Value=96.5 Units=?? F 02/07/2021 8867-4 LOINC Heart rate Value=68.0 Units=/min 12/2020 36198-8 LOINC O2 % BldC Oximetry Value=94.0 Units= % 02/07/2021 46863-7 LOINC Weight Dzrhe=087.0 Units=Lbs
== END 2024-11-22 14:45 | disposition home or self-care (01) ==
LOC: HO.HUSH 14:04
PROVIDERS: PCP Physician Assistant; Visit Provider Nurse Practitioner Family
DX: N39.46 Mixed incontinence (principal); Z13.9 Encounter for screening, unspecified
CPT/HCPCS: 99203

== ENCOUNTER → 2024-11-22 14:03 | Outpatient (BNVA) | payer MEDICAID, SELFPAY | PROVIDERS: PCP Physician Assistant; Visit Provider Nurse Practitioner Family | DX: N39.46 Mixed incontinence (principal) | CPT/HCPCS: 81003; 99212 ==